=== PATIENT | male | born 2000 | race Caucasian/White ===

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

== ENCOUNTER 2022-04-05 21:58 | Emergency (ER) | payer BC ==
[~2022-04-05] VITALS: Ht 185.4 cm; Wt 113.6 kg
[~2022-04-05 21:58] MED LIST changes: +ANTIBIOTIC; +BACTRIM DS 8001 TAB PO
[2022-04-05 22:08] VITALS: TEMP 98.2
[2022-04-05] MEDS ORDERED: CLEOCIN HCL300 MG PO (22:18)
[2022-04-05] MEDS ORDERED: PREDNISONE10 MG PO ×2 (22:18→22:35)
[2022-04-05 22:40] VITALS: BP 141/87; PULSE 79
== END 2022-04-05 22:40 | disposition home or self-care (01) ==
LOC: COL.ER 21:58
DX: L23.7 Allergic contact dermatitis due to plants, except food (principal); E66.9 Obesity, unspecified; Z87.891 Personal history of nicotine dependence; Z28.310 Unvaccinated for COVID-19
CPT/HCPCS: J7512